=== PATIENT | female | born 1940 | race Caucasian/White ===

== ENCOUNTER 2018-05-17 06:28 | Inpatient (IN) ==
[2018-05-17] MEDS ORDERED: Gelatin Size 100 Topical Foam ONE (07:21)
[2018-05-17] MEDS ORDERED: Thrombin Topical Soln 5,000 UNIT Vial TOPICAL ONE (07:21)
[2018-05-17] MEDS ORDERED: Propofol Inj 500 MG/50 ML Vial ONE (07:21)
[2018-05-17] MEDS ORDERED: SUFentanil Inj 250 MCG/5 ML Ampul ONE (07:21)
[2018-05-17] MEDS ORDERED: Sodium Chlor 0.9% Inj 250 ML ONE (07:45)
[2018-05-17] MEDS ORDERED: Artificial Tears Opth Oint 3.5 GM Tube ONE (07:56)
[2018-05-17] MEDS ORDERED: Sod Chloride 0.9% Inj 1,000 ML IV.SIG SCH (08:30)
[2018-05-17] MEDS ORDERED: Metoprolol Tartrate 25 MG Tablet PO SCH (08:30)
[2018-05-17] MEDS ORDERED: Chlorhexidine Gluconate 2% 1 Pack (2 Cloths) TOPICAL SCH (08:30)
[2018-05-17] MEDS ORDERED: Sodium Chlor 0.9% Inj 500 ML IV.SIG SCH (09:00)
[2018-05-17] MEDS ORDERED: Vancomycin Inj 1,000 MG in Sodium Chlor 0.9% Inj 250 ML IV.SIG SCH (09:00)
[2018-05-17] MEDS ORDERED: Phenylephrine/NS 1000 MCG/10ML Syringe IV.PUSH ONE (12:00)
[2018-05-17] MEDS ORDERED: Neostigmine Inj 5 MG/5 ML Syringe IV.PUSH ONE (12:00)
[2018-05-17] MEDS ORDERED: Esmolol Bolus Inj 100 MG/10 ML Vial IV.PUSH ONE (12:00)
[2018-05-17] MEDS ORDERED: Glycopyrrolate Inj 1 MG/5 ML Syringe IV.PUSH ONE (12:00)
[2018-05-17] MEDS ORDERED: Succinylcholine Inj 100 MG/5 ML Syringe IV.PUSH ONE (12:00)
[2018-05-17] MEDS ORDERED: Lidocaine PF 1% Inj 5 ML Syringe INFILTRATN ONE (12:00)
[2018-05-17] MEDS ORDERED: *morphine SULFATE 4 MG/ML PERIprocedure ONLY ONE ×2 (12:53→14:08)
[2018-05-17] MEDS ORDERED: Dimethicone/Oxybenzone-Padimate Lip Balm 4.25 GM Tube TOPICAL ONE (12:55)
[2018-05-17] MEDS ORDERED: fentaNYL Citrate Inj 100 MCG/2 ML Ampul ONE ×2 (12:56)
[2018-05-17] MEDS ORDERED: Bisacodyl 10 MG Supp RECTAL PRN ×2 (13:05→13:07)
--- NOTE | 2018-05-17 13:20 | P.OP ---
Date of procedure: 05/17/18 Implants: + C3-4, C5-6 anterior cervical discectomy, interbody arthodhesis using PEEK cage filled with autologous bone graft, Simplicity plate and screws. Anesthesia: MARYAMA Surgeon: Bj Rao MD Health Unit Clerk: Dulce Maria infante Pathology: none sent Operation and Findings: INDICATIONS FOR THE PROCEDURE Ms correa is a 78 year-old female who presented with intractable neck pain and clinical evidence of C4 and C6 upper extremity radiculopathy. She was found to have significant spndylosis with stenosis. She has failed maximum nonsurgical management including multiple modalities of conservative treatment as well as pain management interventions by an interventional pain specialist. A surgical decompression and arthrodhesis were indicated. The [id number] details of the procedure, indications, alternatives, risks and potential complications were fully discussed with the patient. The patient fully understood. All The questions were answered. No guarantees were given. The patient voiced requesting the procedure and provided informed consents. The patient was offered the alternative of delaying the procedure and continuing with nonsurgical management. DETAILS OF THE SURGICAL PROCEDURE After the induction of general anesthesia, endotracheal intubation was performed. A Sarabia catheter, bilateral SAMANTHA hose, and sequential compression devices were placed and kept throughout the procedure. Placement of electrodes for neurophysiological monitoring of the somatosensorial evoked potentials. motor evoked potentials, and EMG as well as laryngeal nerve monitoring was achieved. The patient was positioned supine on a Paddy table with the head over a gel doughnut. All pressure points were carefully padded with eggcrate mattress. The eyes were tapped shut after ointment was applied by the anesthesiologist to prevent corneal abrasion. A Cindy hugger was placed over the exposed lower body to maintain control of the core body temperature. The electrophysiological team placed the needles and electrodes in their proper location and baseline SSEP's and motor evoked potentials were registered prior and after positioning and endotracheal intubation. The anterior cervical region was prepped and draped in the usual sterile fashion. A localizing x-ray was performed with a C-arm. The surgical procedure was performed in several steps as follow: SURGICAL APPROACH A skin incision was made along the medial cervical crease with a #10 blade. The dissection was carried out through the platysma exposing the sternocleidomastoid muscle. The cervical spine was approached following the fascial layers of the neck just medial to the anterior border of the sternocleidomastoid and carotid sheath by a combination of sharp and dull dissection. The omohyoid muscle was identified and carefully dissected laterally and the deep cervical fascia was carefully opened. The longus colli muscles were retracted to each side of the midline. A marker was placed at the disc space C5-6 and a cross-table lateral x-ray performed with a C-arm. SURGICAL DECOMPRESSION In order to decompress the anterior surface of the spinal cord it was necessary to preform a microsurgical resection of the disk at C3-4 and C5-6. At this point in the procedure the operating microscope was draped in the usual sterile fashion and brought to the field. The rest of the surgical procedure was performed using microdissection technique with the exception of the closure. Under the operative microscopic, a self-retaining retractor was placed underneath the longus colli muscle. Anterior osteophite spurs werte carefully removed with the [place]. The annulus at C3-4 and C5-6 were incised with a #15 blade and microdiscectomy was then carefully carried out using angled curets and pituitary forceps. There were osteophitic/disk complexes causing mass effect and compression of the dural sac and nerve roots. The posterior longitudinal ligament was then elevated with an angled curet and incised with a 15 bladed knife. A careful resection of the posterior longitudinal ligament was carried out using a thin footplate 2 mm Kerrison. A nerve hook was used to assess the epidural space behind the vertebral bodiesC3, C4, C5 and C6 in search for residual disk fragments. The margins of the posterior endplates at C3 -4 and C5-6 were carefully drilled and undercut with a TPS drill under high magnification. The decompression was then carried out laterally, and a bilateral foraminotomy was performed with a 2mm thin foot Kerrison. Then the vertebral bodies above and below the disk space were undercut using a 2 mm thin foot Kerrison. The epidural space was the systematically assessed with a nerve hook in search for disk fragments or scar tissue. An excellent decompression was achieved in both, the dural sac and bilateral exiting nerve roots. The incision was then irrigated with a large amount of antibiotic solution INTERBODY ARTHRODHESIS In order to avoid collapse of the disk space which would result in bilateral foraminal stenosis, and to increase the chances of a successful fusion, it was necessary to place an interbody cage filled with autologous bone. At this point of the procedure, the superior and inferior endplates were then evenly decorticated with a TPS drill. The use of a drill in combination with a curette allowed me to systematically remove the cartilaginous endplates, exposing healthy bone for the interbody arthrodesis. Fourteen millimeters distraction pins were then placed at the vertebral bodies adjacent to the disk space, and gentle distraction was applied. The size of the interbody cage was then assessed using different size spacers, and a rasp was used to ensure no residual cartilage. A PEEK cage of the appropriate size was selected, and the interbody arthrodesis was then preformed by carefully impacting a PEEK cage filled with autologous bone graft to the disc spaces C3-4 and C5-6. An excellent position of the cage was achieved. This was was confirmed anatomically by feeling the space posterior to the implant and distance to the anterior surface of the dural sac. Radiological confirmation of the position was performed with a cross lateral xray performed with the C-arm. INTERNAL INSTRUMENTAL FIXATION Once that the interbody device was in an appropriate position, it was necessary to stabilize the spine with anterior instrumentation. Anterior instrumentation has demonstrated to increase the rate of fusion, accelerate the patient's recovery, and decrease the rate of failed interbody grafs. At this point of the procedure, the distance between the vertebral bodies was carefully measures, and a Simplicity plate was brought to the field and presented in front of the vertebral bodies C3-C4 and another plate at C5-C6. Striper Spray Gun holes were then drilled using the TPS drill, and the plate was then secured to the spine using self-drilling, self-tapping screws. Initially, the inferior right screw was inserted, followed by placement of the contralateral upper screw. The remanding screws were sequentially placed in a contra-lateral fashion. A proper purchase was achieved with all screws and the position of the cage, plate and screws, and alignment of the spine was assessed anatomically by direct visualization, and radiologically by performing a cross lateral xray of the cervical spine with the C-arm. CLOSURE The incision was irrigated with several liters of antibiotic solution. Hemostasis was achieved with a bipolar. The screws were locked to prevent backing out. A 7 mm Paddy-Castro drain was left in the prevertebral space and externalized through a separate stab incision. The incision was then closed in layers. 3-0 Vicryl with interrupted sutures was used to close the platysma and subcutaneous tissue. The skin was closed with 4-0 running subcuticular Vicryl and glue was applied to the skin. The drain was secured with a 3-0 nylon. At the end of the procedure the sponge, needle and instrument counts were all correct. The estimated blood loss was less than 80 cc. No blood transfusion was given. No intraoperative complications occurred. The patient received prophylactic antibiotics. The patient was then extubated and transferred to the recovery room in stable condition.
--- NOTE | 2018-05-17 17:36 | XR ---
EXAM DATE: 05/17/2018 5:32 PM EDT AGE/SEX: 78 years / Female INDICATIONS: C3-C4, C5-C6 fusion done in operating room. CLINICAL DATA: This is the patient's initial encounter. Patient reports that signs and symptoms have been present for 1 day and indicates a pain score of Nonresponsive. MEDICAL/SURGICAL HISTORY: None. None. COMPARISON: No prior exams available for comparison. FINDINGS: Single fluoroscopic crosstable lateral view of the cervical spine. Intradiscal cage and anterior plat e and screw fixation noted at C3-4 and C5-6. Hardware appears grossly well-positioned. Osseous struct ures appear intact. CONCLUSION: 1. Anterior fusion at C3-4 and C5-6, as above. Electronically signed by: Ronni Busch MD 05/17/2018 5:34 PM EDT
[2018-05-17] MEDS ORDERED: Montelukast 10 MG Tablet PO SCH (18:00)
[2018-05-17] MEDS ORDERED: Gabapentin 300 MG Capsule PO SCH ×2 (18:00→21:00)
[2018-05-17] MEDS: ceFAZolin Inj 2,000 MG in Sodium Chlor 0.9% Inj 100 ML IV.SIG SCH (18:17)
[2018-05-17] MEDS: Senna/Docusate Sodium 8.6/50 MG Tablet PO SCH ×2 (20:53)
[2018-05-18] MEDS: ceFAZolin Inj 2,000 MG in Sodium Chlor 0.9% Inj 100 ML IV.SIG SCH ×2 (01:58→08:41)
[2018-05-18] MEDS ORDERED: Levothyroxine 75 MCG Tablet PO SCH (06:00)
[2018-05-18 08:25] VITALS: BP 138/81; PULSE 89; RESP 17; TEMP 98.2; O2SAT 95
[2018-05-18] MEDS: Senna/Docusate Sodium 8.6/50 MG Tablet PO SCH ×2 (08:41→08:42)
[2018-05-18] MEDS ORDERED: [UNRECOGNIZED DRUG - OTHER] PO SCH (09:00)
[2018-05-18] MEDS ORDERED: Magnesium Oxide 400 MG Tablet PO SCH (09:00)
[2018-05-18] MEDS ORDERED: METHYLTESTOSTERONE PO SCH (09:00)
--- NOTE | 2018-05-18 10:11 | P.DS ---
<Bj Rao - Last Filed: 05/24/18 12:21> Date of admission: 05/17/18 13:05 Primary care physician: kristy Bradley DS: Summary - Time Spent with Patient Total time spent providing and/or coordinating discharge services: Exam Vital signs: Vital Signs 05/17/18 16:00 05/17/18 20:00 05/18/18 00:00 Temperature 97.5 F L 98 F 97.8 F Pulse Rate 80 83 82 Respiratory Rate 16 18 18 Blood Pressure 112/56 L 110/58 L 133/64 Pulse Oximetry 99 95 97 05/18/18 04:00 05/18/18 08:00 Temperature 98.1 F 98.2 F Pulse Rate 82 89 Respiratory Rate 18 17 Blood Pressure 116/59 L 138/81 Pulse Oximetry 96 95 Intake & Output 05/17/18 05/18/18 05/18/18 18:59 06:59 18:59 Intake Total 1920 / 1920 1720 / 1720 Output Total 1180 / 1180 780 / 780 Balance 740 / 740 940 / 940 Weight 67.8 kg 67.8 kg Intake: IV 120 / 120 1120 / 1120 NS + KCl 20 mEq Inj 1,000 ML @ 1000 / 1000 100 mls/hr IV.CONT .Q10H [facility] Rx #:[id number] Ancef Inj 2,000 MG In NS Inj 120 / 120 120 / 120 100 ML @ 240 mls/hr IV.SIG Q8H [facility] Rx#:[id number] Oral 600 / 600 Anesthesia Amount 1800 / 1800 Output: Urine 750 / 750 Estimated Blood Loss 80 / 80 Urine Amount (Catheter) 1100 / 1100 Indwelling Urethral Catheter 1100 / 1100 Wound Drainage 0 / 0 30 / 30 Right Anterior Neck 0 / 0 30 / 30 Other: Date of Last Bowel Movement 05/16/15 05/16/18 Weight On Admission 67.8 kg Results - Impressions ITS Impressions Cervical Spine X-Ray 05/17/18 00:00 CONCLUSION: 1. Anterior fusion at C3-4 and C5-6, as above. <Kamila Rodriguez - Last Filed: 05/24/18 16:55> Date of admission: 05/17/18 13:05 Primary care physician: kristy Bradley Brief History from admission: Ms correa is a 78 year-old female who presented with intractable neck pain and clinical evidence of C4 and C6 upper extremity radiculopathy. She was found to have significant spndylosis with stenosis. She has failed maximum nonsurgical management including multiple modalities of conservative treatment as well as pain management interventions by an interventional pain specialist. A surgical decompression and arthrodesis were indicated. DS: Diagnosis - Discharge Diagnosis (1) Status post cervical arthrodesis Status: Acute DS: Summary Hospital Course: Ms. Correa is s/p C3-4, C5-6 anterior cervical discectomy, interbody arthodhesis using PEEK cage filled with autologous bone graft, Simplicity plate and screws on 05/17/18. Her surgery went well without complications, she will be discharged home in stable conditions. - Time Spent with Patient Total time spent providing and/or coordinating discharge services: Less than 30 minutes - Quality: VTE Deep Vein Thrombosis/Pulmonary Embolism Present on Admission: No Exam Vital signs: Vital Signs 05/17/18 12:29 05/17/18 12:45 05/17/18 13:00 Temperature 98.1 F Pulse Rate 78 89 75 Respiratory Rate 16 16 16 Blood Pressure 107/58 L 99/50 L 112/74 Pulse Oximetry 100 100 100 05/17/18 13:15 05/17/18 15:00 05/17/18 15:01 Temperature Pulse Rate 71 66 78 Respiratory Rate 16 16 Blood Pressure 98/53 L 97/52 L Pulse Oximetry 100 100 100 05/17/18 16:00 05/17/18 20:00 05/18/18 00:00 Temperature 97.5 F L 98 F 97.8 F Pulse Rate 80 83 82 Respiratory Rate 16 18 18 Blood Pressure 112/56 L 110/58 L 133/64 Pulse Oximetry 99 95 97 05/18/18 04:00 05/18/18 08:00 Temperature 98.1 F 98.2 F Pulse Rate 82 89 Respiratory Rate 18 17 Blood Pressure 116/59 L 138/81 Pulse Oximetry 96 95 Intake & Output 05/17/18 05/18/18 05/18/18 18:59 06:59 18:59 Intake Total 1920 / 1920 1720 / 1720 Output Total 1180 / 1180 780 / 780 Balance 740 / 740 940 / 940 Weight 67.8 kg 67.8 kg Intake: IV 120 / 120 1120 / 1120 NS + KCl 20 mEq Inj 1,000 ML @ 1000 / 1000 100 mls/hr IV.CONT .Q10H [facility] Rx #:[id number] Ancef Inj 2,000 MG In NS Inj 120 / 120 120 / 120 100 ML @ 240 mls/hr IV.SIG Q8H [facility] Rx#:[id number] Oral 600 / 600 Anesthesia Amount 1800 / 1800 Output: Urine 750 / 750 Estimated Blood Loss 80 / 80 Urine Amount (Catheter) 1100 / 1100 Indwelling Urethral Catheter 1100 / 1100 Wound Drainage 0 / 0 30 / 30 Right Anterior Neck 0 / 0 30 / 30 Other: Date of Last Bowel Movement 05/16/15 05/16/18 Weight On Admission 67.8 kg Results Procedures completed during hospitalization: C3-4, C5-6 anterior cervical discectomy, interbody arthodhesis using PEEK cage filled with autologous bone graft, Simplicity plate and screws. - Impressions ITS Impressions Cervical Spine X-Ray 05/17/18 00:00 CONCLUSION: 1. Anterior fusion at C3-4 and C5-6, as above. 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 RF: 0 ropinirole [Requip] 0.5 mg Tablet 0.5 mg PO HS RF: 0 Continue estrogens-methyltestosterone [EEMT HS] 0.625-1.25 mg Tablet 1 tab PO DAILY gabapentin 300 mg Capsule 300 mg PO HS levothyroxine 75 mcg Capsule 75 mcg PO DAILY magnesium 200 mg Tablet 200 mg PO DAILY montelukast 10 mg Tablet 10 mg PO QPM ropinirole 0.5 mg Tablet 0.5 mg PO HS Referrals: kristy Bradley [Other] - See Instructions - Discharge Instructions Patient Printed Instructions: Tramadol (By mouth), Anterior Cervical Discectomy (DC), [place] J Collar (DC) Additional Instructions: REGULAR DIET TOLERATED KEEP [place] ON INSTRUCTED DO NOT CHANGE DRESSING KEEP DRESSING CLEAN, DRY, AND INTACT TAKE MEDICATION PRESCRIBED FOLLOW UP WITH MD INSTRUCTED - Post Discharge Care Plan Care Plan Goals: Your Health Problems: Goals to Promote Your Health: * To prevent worsening of your condition * To maintain your health at the optimal level Directions to Meet Your Goals: * Take your medications as prescribed * Follow your dietary instruction * Follow activity as directed * Keep your appointments as scheduled * Take your immunizations and boosters as scheduled * If your symptoms worsen call your PCP * If no PCP go to Urgent Care or Emergency Room Smoking is dangerous to your health. Avoid second hand smoke. You may reach the [facility] [employer] [facility] [facility] for domestic abuse at [phone].Your Health Problems: Goals to Promote Your Health: * To prevent worsening of your condition * To maintain your health at the optimal level Directions to Meet Your Goals: * Take your medications as prescribed * Follow your dietary instruction * Follow activity as directed * Keep your appointments as scheduled * Take your immunizations and boosters as scheduled * If your symptoms worsen call your PCP * If no PCP go to Urgent Care or Emergency Room Smoking is dangerous to your health. Avoid second hand smoke. You may reach the [facility] [employer] [facility] for domestic abuse at .
== END 2018-05-18 12:25 | disposition home or self-care (01) ==
LOC: HSDC 06:28 → N06 13:05
PROVIDERS: ADMIT Neurological Surgery; ATTEND Neurological Surgery